=== PATIENT | male | born 1975 | race Hispanic/Latino ===

== ENCOUNTER 2024-01-18 11:06 | Emergency (ER) | payer SELFPAY ==
[~2024-01-18] VITALS: Ht 170.2 cm; Wt 79.4 kg
[~2024-01-18 11:06] MED LIST: MEDROL4 M2 PO; METHOCARBAMOL750 MG PO
[2024-01-18] MEDS ORDERED: SINGULAIR10 MG PO (11:14)
[2024-01-18] MEDS ORDERED: ZYRTEC10 MG PO (11:15)
[2024-01-18] MEDS ORDERED: MUCINEX DM ER1 EACH PO (11:17)
[2024-01-18 11:18] VITALS: PULSE 105; RESP 21; TEMP 99.4; O2SAT 99
== END 2024-01-18 11:26 | disposition home or self-care (01) ==
LOC: ER 11:10
DX: U07.1 COVID-19 (principal); I10 Essential (primary) hypertension; E78.5 Hyperlipidemia, unspecified
CPT/HCPCS: 99283